=== PATIENT | female | born 1975 | race Caucasian/White ===

== ENCOUNTER 2017-10-25 15:00 | Emergency (ER) | payer OTHER ==
[2017-10-25 16:22] LABS: WHITE BLOOD COUNT 11.2 10^3/ul (4.8-10.8)
[2017-10-25 16:22] LABS: ABNORMAL IP MESSAGE 1; HEMATOCRIT 17.6 % (37.0-47.0); MEAN CORPUSCULAR HEMOGLOBIN 31.1 pg (29.0-33.0); MEAN CORPUSCULAR HGB CONC 32.4 g/dl (32.0-37.0); MEAN CORPUSCULAR VOLUME 96.2 fl (82.0-101.0); MEAN PLATELET VOLUME 10.4 fl (7.4-10.4); NUCLEATED RED BLOOD CELLS% 0.4 /100WBC (0.0-0.0); PLATELET COUNT 240 10^3/UL (140-415); RED BLOOD COUNT 1.83 10^6/ul (4.20-5.40); RED CELL DISTRIBUTION WIDTH 13.7 % (11.5-14.5)
[2017-10-25 16:26] LABS: ADD MAN DIFF? YES; HEMOGLOBIN 5.7 g/dl (12.0-16.0); POSITIVE DIFF @See below
[2017-10-25 16:44] LABS: BAND NEUTROPHILS #M 0.5 10^3/ul (0.0-0.6); BAND NEUTROPHILS % (M) 5 % (0-4); EOSINOPHILS % (M) 1 % (0-7); HYPOCHROMASIA 1+ (0-0); LYMPHOCYTES #M 2.4 10^3/ul (0.8-2.9); LYMPHOCYTES % (M) 22 % (15-51); METAMYELOCYTES #M 0.3 10^3/ul (0.0-0.0); METAMYELOCYTES %M 3 % (0-0); MONOCYTE #M 0.2 10^3/ul (0.3-0.9); MONOCYTES % (M) 2 % (0-11); PLATELET ESTIMATE NORMAL; POLYCHROMASIA 1+ (0-0); SEG NEUT #M 7.6 10^3/ul (1.6-7.5); SEGMENTED NEUTROPHILS (M) % 67 % (39-77)
[2017-10-25 19:32] LABS: IMMEDIATE SPIN CROSSMATCH 1 2
[2017-10-25] MEDS ORDERED: ACETAMINOPHEN 500 MG TAB (19:59)
[2017-10-25] MEDS: ACETAMINOPHEN 500 MG TAB PO (20:00)
== END 2017-10-26 01:14 | disposition home or self-care (01) ==
LOC: E/R 10-26 01:14
DX: D64.9 Anemia, unspecified (principal)
CPT/HCPCS: 36415; 36430; 85025; 86850; 86900; 86901; 86920; 99285-25